=== PATIENT | female | born 1965 | race Caucasian/White ===

== ENCOUNTER 2020-06-27 15:12 | Emergency (ER) | payer SELFPAY ==
[~2020-06-27] VITALS: Ht 165.1 cm; Wt 86.2 kg
[2020-06-27 15:16] VITALS: BP 190/107
[2020-06-27] MEDS ORDERED: SODIUM CHLORIDE 0.9% 1,000 ML IV ONE (15:30)
[2020-06-27] MEDS ORDERED: LORazepam 2MG/ML-1ML VIAL IV ONE (15:30)
== END 2020-06-27 16:11 | disposition left against medical advice (07) ==
LOC: ER 15:12 → EDUNIT# 15:12 → EDBD 15:12 → ER 16:11
DX: F41.9 Anxiety disorder, unspecified (principal); F10.10 Alcohol abuse, uncomplicated; I10 Essential (primary) hypertension; F17.210 Nicotine dependence, cigarettes, uncomplicated

== ENCOUNTER 2020-07-06 14:06 | Emergency (ER) | payer SELFPAY ==
[~2020-07-06] VITALS: Ht 167.6 cm; Wt 79.4 kg
[2020-07-06] MEDS ORDERED: LORazepam 2MG/ML-1ML VIAL IV ONE (14:30)
[2020-07-06] MEDS ORDERED: SODIUM CHLORIDE 0.9% 1,000 ML IV ONE (14:30)
[2020-07-06 14:45] LABS: Basophils # (auto) 0 10 ^3/uL (0-0.2); Basophils % (auto) 1.2 % (0.0-2.0); Eosinophils # (auto) 0 10 ^3/uL (0-0.8); Eosinophils % (auto) 0.8 % (0.0-7.0); Hematocrit 37.7 % (36.0-46.0); Hemoglobin 12.7 g/dL (12.2-16.2); Lymphocytes # (auto) 1.1 10 ^3/uL (0.4-5.4); Lymphocytes % (auto) 27.3 % (10.0-50.0); Mean Corpuscular Hemoglobin 29.9 pg (28.0-32.0); Mean Corpuscular Hgb Conc. 33.6 g/dL (32.0-36.0); Mean Corpuscular Volume 89.2 fL (80.0-100.0); Monocytes # (auto) 0.4 10 ^3/uL (0-1.3); Monocytes % (auto) 10.5 % (0.0-12.0); Neutrophils # (auto) 2.5 10 ^3/uL (1.6-8.6); Neutrophils % (auto) 60.2 % (37.0-80.0); Platelet Count (auto) 120 10^3/uL (140-450); Red Blood Cells 4.23 10^6/uL (4.0-5.20); Red Cell Distribution Width 16.4 % (11.8-14.3); White Blood Cell 4.1 10^3/uL (4.4-10.8)
[2020-07-06 15:04] LABS: Albumin 3.4 g/dL (3.4-5.0); Potassium 3.1 mmol/L (3.5-5.1)
[2020-07-06 15:18] LABS: BUN/Creatinine Ratio 17.5; Bilirubin, Total 0.4 mg/dL (0.2-1.0); Total Protein 7.3 g/dL (6.4-8.2)
[2020-07-06] MEDS ORDERED: POTASSIUM CHL 20 Meq TABLET PO ONE (15:30)
[2020-07-06] MEDS ORDERED: LORazepam 0.5 MG TAB PO ONE (19:00)
[2020-07-07 05:00] VITALS: BP 184/110
[2020-07-07] MEDS ORDERED: hydrALAZINE HCL 20 MG/ML VL IV ONE (06:15)
== END 2020-07-07 08:02 | disposition home or self-care (01) ==
LOC: ER 14:06
DX: F10.139 Alcohol abuse with withdrawal, unspecified (principal); R56.9 Unspecified convulsions; F17.210 Nicotine dependence, cigarettes, uncomplicated; I10 Essential (primary) hypertension; Z88.6 Allergy status to analgesic agent
CPT/HCPCS: 36415; 80053; 80320; 85025; 96361; 96374; 96375; 99284; J0360; J2060; J7030

== ENCOUNTER 2020-07-07 09:31 | Emergency (ER) | payer SELFPAY ==
[~2020-07-07] VITALS: Ht 167.6 cm; Wt 72.6 kg
[2020-07-07 09:44] VITALS: BP 155/119
== END 2020-07-07 10:08 | disposition home or self-care (01) ==
LOC: EDUNIT# 09:31 → EDBD 09:31 → ER 09:31
DX: F10.10 Alcohol abuse, uncomplicated (principal); F17.210 Nicotine dependence, cigarettes, uncomplicated; I10 Essential (primary) hypertension

== ENCOUNTER 2020-09-27 12:34 | Emergency (ER) | payer MEDICAID ==
[~2020-09-27] VITALS: Ht 170.2 cm; Wt 90.7 kg
[2020-09-27] MEDS ORDERED: FOLIC ACID 1 MG, MULTIPLE VITAMIN 10 ML, MAGNESIUM SULF SDV 50% 8 MEQ, THIAMINE INJ 100... INJ STA ×5 (13:34)
[2020-09-27 13:41] LABS: Basophils # (auto) 0.1 10 ^3/uL (0-0.2); Basophils % (auto) 1.2 % (0.0-2.0); Eosinophils # (auto) 0 10 ^3/uL (0-0.8); Eosinophils % (auto) 0.7 % (0.0-7.0); Hematocrit 41.5 % (36.0-46.0); Lymphocytes % (auto) 39.9 % (10.0-50.0); Mean Corpuscular Hemoglobin 29.1 pg (28.0-32.0); Mean Corpuscular Hgb Conc. 33.8 g/dL (32.0-36.0); Mean Corpuscular Volume 86.2 fL (80.0-100.0); Monocytes # (auto) 0.3 10 ^3/uL (0-1.3); Monocytes % (auto) 6.1 % (0.0-12.0); Neutrophils # (auto) 2.7 10 ^3/uL (1.6-8.6); Neutrophils % (auto) 52.1 % (37.0-80.0); Nucleated Red Blood Cells % 0.4 %; Platelet Count (auto) 218 10^3/uL (140-450); Red Blood Cells 4.82 10^6/uL (4.0-5.20); Red Cell Distribution Width 14.7 % (11.8-14.3); White Blood Cell 5.1 10^3/uL (4.4-10.8)
[2020-09-27] MEDS ORDERED: THIAMINE 100mg/ml INJ (200mg/2ml VIAL) IV ONE (13:45)
[2020-09-27] MEDS ORDERED: SODIUM CHLORIDE 0.9% 2,000 ML IV ONE (13:45)
[2020-09-27 14:11] LABS: Urine Bacteria NONE SEEN /hpf (None Seen); Urine Blood TRACE /uL (Negative); Urine Specific Gravity 1.005 (1.001-1.035); Urine WBC 1 /hpf (0 - 5)
[2020-09-27 14:13] LABS: Salicylate < 1.7 mg/dL (2.8-20.0)
[2020-09-27 14:14] LABS: Albumin 4.1 g/dL (3.4-5.0); Potassium 3.6 mmol/L (3.5-5.1)
[2020-09-27 14:18] LABS: Total Protein 7.6 g/dL (6.4-8.2)
[2020-09-27 14:19] LABS: Acetaminophen < 2.0 ug/mL (10-30)
[2020-09-27 14:19] LABS: Amphetamine Screen, Urine NEGATIVE (NEGATIVE); Barbiturate Scree,Urine NEGATIVE (NEGATIVE); Benzodiazephine Screen, Urine NEGATIVE (NEGATIVE); Cannabinoid Screen, Urine NEGATIVE (NEGATIVE); Cocaine Screen, Urine NEGATIVE (NEGATIVE); Opiate Scree,Urine NEGATIVE (NEGATIVE); Phencyclidine Screen, Urine NEGATIVE (NEGATIVE)
[2020-09-27 14:29] LABS: Bilirubin, Total 0.7 mg/dL (0.2-1.0)
[2020-09-27 14:34] LABS: Alcohol, Urine 458.1 mg/dL (0-10)
[2020-09-27] MEDS ORDERED: TETANUS-DIPTH-ACEL PERTUSSIS 0.5ML SYR Tdap IM ONE (15:30)
[2020-09-27] MEDS ORDERED: LORazepam 2MG/ML-1ML VIAL IV ONE (15:30)
[2020-09-27] MEDS ORDERED: SODIUM CHLORIDE 0.9% 1,000 ML IV ONE ×2 (17:45→20:30)
[2020-09-27] MEDS ORDERED: ACETAMINOPHEN 325 MG TAB PO ONE (19:00)
[2020-09-27] MEDS ORDERED: ONDANSETRON HCL 4 MG/2 ML VIAL ONE (22:29)
[2020-09-27] MEDS ORDERED: ONDANSETRON HCL 4 MG/2 ML VIAL IV ONE (22:30)
[2020-09-27] MEDS ORDERED: GABAPENTIN 300 MG CAP PO ONE (23:45)
[2020-09-28] MEDS ORDERED: diazePAM 5 MG TAB PO ONE ×2 (01:15→01:30)
[2020-09-28] MEDS ORDERED: LORazepam 0.5 MG TAB PO ONE (08:15)
[2020-09-28] MEDS ORDERED: GABA300C10 PO (14:20)
[2020-09-28] MEDS ORDERED: TRAZ100T3 PO (14:20)
[2020-09-28] MEDS ORDERED: SERT-160 PO (14:20)
[2020-09-28] MEDS ORDERED: FOLI1TAB6 PO (14:20)
[2020-09-28] MEDS ORDERED: PROP10TA57 PO (14:20)
[2020-09-28] MEDS ORDERED: LEXAPRO 5 MG PO SCH (14:30)
[2020-09-28] MEDS ORDERED: chlordiazePOXIDE HCL 25 MG CAP PO ONE (14:30)
[2020-09-28] MEDS: FOLIC ACID 1 MG TAB PO SCH (14:50)
[2020-09-28] MEDS: GABAPENTIN 300 MG CAP PO SCH (14:50)
[2020-09-28] MEDS: PROPRANOLOL HCL 20 MG TAB PO PRN (14:51)
[2020-09-28] MEDS: traZODone HCL 50 MG TAB PO PRN (14:59)
[2020-09-28] MEDS ORDERED: traZODone HCL 50 MG TAB PO PRN (20:00)
[2020-09-29] MEDS: GABAPENTIN 300 MG CAP PO SCH ×5 (00:19→23:18)
[2020-09-29] MEDS: PROPRANOLOL HCL 20 MG TAB PO PRN ×2 (00:40→09:25)
[2020-09-29] MEDS ORDERED: chlordiazePOXIDE HCL 5 MG CAP ONE (08:39)
[2020-09-29] MEDS ORDERED: SERTRALINE HCL 50 MG TAB PO SCH (10:00)
[2020-09-29] MEDS: CITALOPRAM HYDROBR 20 MG TAB PO SCH (10:10)
[2020-09-29] MEDS: FOLIC ACID 1 MG TAB PO SCH (10:10)
[2020-09-29] MEDS: SERTRALINE HCL 50 MG TAB PO SCH (10:10)
[2020-09-29] MEDS: traZODone HCL 50 MG TAB PO PRN (23:19)
[2020-09-29] MEDS: chlordiazePOXIDE HCL 5 MG CAP PO PRN (23:19)
[2020-09-30] MEDS: GABAPENTIN 300 MG CAP PO SCH ×3 (06:04→23:37)
[2020-09-30] MEDS: FOLIC ACID 1 MG TAB PO SCH (11:53)
[2020-09-30] MEDS: PROPRANOLOL HCL 20 MG TAB PO PRN (11:54)
[2020-09-30] MEDS: chlordiazePOXIDE HCL 5 MG CAP PO PRN ×2 (11:54→23:38)
[2020-09-30] MEDS: CITALOPRAM HYDROBR 20 MG TAB PO SCH (11:54)
[2020-09-30] MEDS: SERTRALINE HCL 50 MG TAB PO SCH (11:54)
[2020-09-30] MEDS ORDERED: chlordiazePOXIDE HCL 5 MG CAP ONE (23:26)
[2020-09-30] MEDS ORDERED: GABAPENTIN 300 MG CAP ONE (23:26)
[2020-09-30] MEDS ORDERED: traZODone HCL 50 MG TAB ONE (23:27)
[2020-09-30] MEDS: traZODone HCL 50 MG TAB PO PRN (23:38)
[2020-10-01] MEDS ORDERED: GABAPENTIN 300 MG CAP ONE (07:56)
[2020-10-01] MEDS: GABAPENTIN 300 MG CAP PO SCH (08:03)
[2020-10-01] MEDS: CITALOPRAM HYDROBR 20 MG TAB PO SCH (11:04)
[2020-10-01] MEDS: SERTRALINE HCL 50 MG TAB PO SCH (11:04)
[2020-10-01] MEDS: FOLIC ACID 1 MG TAB PO SCH (11:04)
[2020-10-01 13:40] VITALS: BP 107/80
== END 2020-10-01 12:10 | disposition home or self-care (01) ==
LOC: EDBD 12:34 → ER 12:34
DX: F10.920 Alcohol use, unspecified with intoxication, uncomplicated (principal); F33.9 Major depressive disorder, recurrent, unspecified; F17.210 Nicotine dependence, cigarettes, uncomplicated; Z20.822 Contact with and (suspected) exposure to COVID-19; X83.8XXA Intentional self-harm by other specified means, initial encounter; Y93.89 Activity, other specified; Y92.89 Other specified places as the place of occurrence of the external cause; Y99.8 Other external cause status
CPT/HCPCS: 36415; 71045; 80053; 80307; 80320; 80329; 81001; 81025; 83735; 84702; 85025; 87426; 90471; 90715; 93005; 96361; 96365; 96366; 96375; 99285; J2060; J2405; J3411; J3475; J7030

== ENCOUNTER 2020-11-13 15:38 | Emergency (ER) | payer MEDICAID ==
[~2020-11-13] VITALS: Ht 172.7 cm; Wt 81.6 kg
[~2020-11-13 15:38] MED LIST: FOLI1TAB6 PO; GABA300C10 PO; PROP10TA57 PO; SERT-160 PO; TRAZ100T3 PO
[2020-11-13] MEDS ORDERED: SODIUM CHLORIDE 0.9% 1,000 ML IVB ONE (15:45)
[2020-11-13 16:18] LABS: Basophils # (auto) 0.1 10 ^3/uL (0-0.2); Basophils % (auto) 1.9 % (0.0-2.0); Eosinophils # (auto) 0.1 10 ^3/uL (0-0.8); Hematocrit 36.7 % (36.0-46.0); Hemoglobin 12.5 g/dL (12.2-16.2); Mean Corpuscular Hemoglobin 29.9 pg (28.0-32.0); Mean Corpuscular Hgb Conc. 34.1 g/dL (32.0-36.0); Mean Corpuscular Volume 87.8 fL (80.0-100.0); Monocytes # (auto) 0.2 10 ^3/uL (0-1.3); Monocytes % (auto) 3.7 % (0.0-12.0); Neutrophils # (auto) 3.4 10 ^3/uL (1.6-8.6); Neutrophils % (auto) 58.4 % (37.0-80.0); Nucleated Red Blood Cells % 0.1 %; Platelet Count (auto) 225 10^3/uL (140-450); Red Blood Cells 4.17 10^6/uL (4.0-5.20); Red Cell Distribution Width 15.7 % (11.8-14.3); White Blood Cell 5.8 10^3/uL (4.4-10.8)
[2020-11-13 16:35] LABS: Albumin 3.6 g/dL (3.4-5.0); BUN/Creatinine Ratio 18.3; Calcium 8.3 mg/dL (8.5-10.1); Potassium 3.3 mmol/L (3.5-5.1)
[2020-11-13 16:36] LABS: Amphetamine Screen, Urine NEGATIVE (NEGATIVE); Barbiturate Scree,Urine NEGATIVE (NEGATIVE); Benzodiazephine Screen, Urine NEGATIVE (NEGATIVE); Cannabinoid Screen, Urine NEGATIVE (NEGATIVE); Cocaine Screen, Urine NEGATIVE (NEGATIVE); Phencyclidine Screen, Urine NEGATIVE (NEGATIVE)
[2020-11-13 16:40] LABS: Bilirubin, Total 0.3 mg/dL (0.2-1.0); Total Protein 7.1 g/dL (6.4-8.2)
[2020-11-13 16:45] LABS: Opiate Scree,Urine NEGATIVE (NEGATIVE)
[2020-11-14] MEDS ORDERED: SODIUM CHLORIDE 0.9% 1,000 ML IV ONE (00:15)
[2020-11-14] MEDS: SODIUM CHLORIDE 0.9% 1,000 ML IV ONE ×2 (04:00→04:16)
[2020-11-14 08:00] VITALS: BP 157/92
== END 2020-11-14 09:59 | disposition left against medical advice (07) ==
LOC: ER 15:38 → EDBD 15:38 → ER 11-14 09:59
DX: F10.920 Alcohol use, unspecified with intoxication, uncomplicated (principal); R41.82 Altered mental status, unspecified; F17.210 Nicotine dependence, cigarettes, uncomplicated; I10 Essential (primary) hypertension; Z79.899 Other long term (current) drug therapy
CPT/HCPCS: 36415; 80053; 80307; 80320; 85025; 93005; 96360; 96361; 99285; J7030

== ENCOUNTER 2020-11-29 15:04 | Emergency (ER) | payer MEDICAID ==
[~2020-11-29] VITALS: Ht 165.1 cm; Wt 77.1 kg
[2020-11-29 15:21] VITALS: BP 140/96
== END 2020-11-29 18:37 | disposition left against medical advice (07) ==
LOC: EDBD 15:04 → ER 15:04
DX: F41.9 Anxiety disorder, unspecified (principal); Z59.0 Homelessness; Z53.21 Procedure and treatment not carried out due to patient leaving prior to being seen by health care provider
CPT/HCPCS: 93005